=== PATIENT | male | born 1935 | race Caucasian/White ===

== ENCOUNTER → 2016-06-01 | Outpatient (CLI) | payer MEDICARE, BC ==
[~2016-06-01] MED LIST: ALPHAGAN P5 ML OU; ASPIR-LOW81 MG PO; ASPIRIN EC81 MG PO; BIMATOPROST2.5 ML OU; COQ-10100 MG PO; DAILY MULTIPLE1 EAC1 PO; EFFEXOR XR37.5 M1 PO; ELIQUIS5 MG PO; LIPITOR DPS40 MG PO; LOPRESSOR DPS12.5 MG PO; MIRALAX DPS17 GM PO; MYSOLINE50 MG PO; OMNICEF DPS300 MG PO; PROTONIX40 MG PO; SENNA-DOCUSATE1 EACH PO; SYMBICORT160 MCG/6 IH; SYNTHROID DPS0.1 MG PO; TRUSOPT 2% DPS10 ML OU
== END | disposition home or self-care (01) ==
DX: R93.8 Abnormal findings on diagnostic imaging of other specified body structures (principal); J98.4 Other disorders of lung; K76.89 Other specified diseases of liver